=== PATIENT | female | born 1975 | race Caucasian/White ===

== ENCOUNTER → 2016-09-06 | Outpatient (CLI) | payer OTHER ==
[~2016-09-06] MED LIST: DICLOFENAC50 MG PO; LEVOTHYROXINE0.05 MG PO
== END ==
LOC: MC.RAD 13:20
DX: D24.1 Benign neoplasm of right breast (principal)

== ENCOUNTER → 2017-09-21 | Outpatient (CLI) | payer OTHER | LOC: MC.RAD 09:26 | DX: Z12.31 Encounter for screening mammogram for malignant neoplasm of breast (principal); Z98.890 Other specified postprocedural states ==

== ENCOUNTER 2019-12-26 19:26 | Emergency (ER) | payer OTHER ==
[~2019-12-26] VITALS: Ht 172.7 cm; Wt 106.2 kg
[2019-12-26 19:37] VITALS: TEMP 98.6
[2019-12-26 21:43] VITALS: BP 137/91; PULSE 60
== END 2019-12-26 21:47 | disposition home or self-care (01) ==
LOC: COL.ER 19:26
DX: S06.0X9A Concussion with loss of consciousness of unspecified duration, initial encounter (principal); E03.9 Hypothyroidism, unspecified; Z79.890 Hormone replacement therapy; Z87.891 Personal history of nicotine dependence; V87.8XXA Person injured in other specified noncollision transport accidents involving motor vehicle (traffic), initial encounter; Y92.89 Other specified places as the place of occurrence of the external cause

== ENCOUNTER → 2020-03-10 | Outpatient (CLI) | payer OTHER | LOC: MC.RAD 09:46 | DX: N64.1 Fat necrosis of breast (principal); R92.1 Mammographic calcification found on diagnostic imaging of breast; Z98.86 Personal history of breast implant removal ==

== ENCOUNTER → 2020-06-23 | Outpatient (CLI) | payer OTHER | LOC: MC.RAD 08:30 | DX: N64.1 Fat necrosis of breast (principal); R92.0 Mammographic microcalcification found on diagnostic imaging of breast; Z98.82 Breast implant status | CPT/HCPCS: 30634 ==

== ENCOUNTER → 2021-07-14 | Outpatient (CLI) | payer OTHER | LOC: MC.RAD 06-24 08:45 | DX: Z12.31 Encounter for screening mammogram for malignant neoplasm of breast (principal); N64.89 Other specified disorders of breast ==

== ENCOUNTER → 2021-07-22 | Outpatient (CLI) | payer OTHER | LOC: MC.RAD 09:00 | DX: N64.9 Disorder of breast, unspecified (principal) ==

== ENCOUNTER → 2022-11-23 | Outpatient (CLI) | payer OTHER | LOC: MC.RAD 07:49 | DX: Z12.31 Encounter for screening mammogram for malignant neoplasm of breast (principal) ==